=== PATIENT | female | born 1990 | race Two or more races ===

== ENCOUNTER 2023-06-09 12:27 | Emergency (ER) | payer BC ==
[~2023-06-09] VITALS: Ht 152.4 cm; Wt 71.0 kg
[2023-06-09 14:27] LABS: Urine Bacteria MOD /hpf (None Seen); Urine Blood TRACE /uL (Negative); Urine Mucus FEW (None Seen); Urine Specific Gravity 1.031 (1.001-1.035); Urine WBC 14 /hpf (0 - 5)
[2023-06-09] MEDS: LORATADINE 10 MG TAB PO ONE ×2 (14:30→15:09)
[2023-06-09 14:42] LABS: Basophils # (auto) 0.1 10 ^3/uL (0-0.2); Eosinophils # (auto) 0.2 10 ^3/uL (0-0.8); Eosinophils % (auto) 1.4 % (0.0-7.0); Hematocrit 39.2 % (36.0-46.0); Hemoglobin 13.5 g/dL (12.2-16.2); Lymphocytes % (auto) 17.1 % (10.0-50.0); Mean Corpuscular Hemoglobin 29.3 pg (28.0-32.0); Mean Corpuscular Hgb Conc. 34.4 g/dL (32.0-36.0); Mean Corpuscular Volume 85.4 fL (80.0-100.0); Monocytes # (auto) 0.8 10 ^3/uL (0-1.3); Monocytes % (auto) 6.8 % (0.0-12.0); Neutrophils # (auto) 8.8 10 ^3/uL (1.6-8.6); Neutrophils % (auto) 73.7 % (37.0-80.0); Nucleated Red Blood Cells % 0.1 %; Red Blood Cells 4.59 10^6/uL (4.0-5.20); Red Cell Distribution Width 13.1 % (11.8-14.3); White Blood Cell 11.9 10^3/uL (4.4-10.8)
[2023-06-09 15:07] LABS: Calcium 8.5 mg/dL (8.5-10.1); Potassium 3.8 mmol/L (3.5-5.1)
[2023-06-09 15:13] LABS: Albumin 3.6 g/dL (3.4-5.0); BUN/Creatinine Ratio 12.5 (10.0-20.0); Bilirubin, Total 0.4 mg/dL (0.2-1.0); Total Protein 7.3 g/dL (6.4-8.2)
[2023-06-09] MEDS ORDERED: CEPH500C PO (16:50)
[2023-06-09] MEDS ORDERED: LORA-622 PO (16:50)
[2023-06-09 17:19] VITALS: BP 125/88
== END 2023-06-09 17:21 | disposition home or self-care (01) ==
LOC: ER 12:27
DX: N39.0 Urinary tract infection, site not specified (principal); L30.9 Dermatitis, unspecified
CPT/HCPCS: 36415; 80053; 81001; 85025; 85652